=== PATIENT | female | born 1955 | race Caucasian/White ===

== ENCOUNTER → 2024-12-05 16:14 | Outpatient (REF) | payer MEDICARE, SELFPAY ==
[2024-12-05 12:34] LABS: % Basophils 0.2 % (0-2); % Eosinophils 2.4 % (0-6); % Lymphocytes 41.4 % (20.5-51.1); Absolute Eosinophils 0.1 10^3/uL (0-0.7); Absolute Lymphocytes 1.7 10^3/uL (1.2-3.4); Absolute Monocytes 0.3 10^3/uL (0.1-0.6); Hematocrit 30.5 % (37.0-47.0); Hemoglobin 10.1 g/dL (12.0-16.0); Mean Corp Hgb Conc. 33.1 g/dL (33.0-37.0); Mean Corpuscular Hgb 24.6 pg (27.0-31.0); Mean Corpuscular Volume 74.4 fL (81.0-99.0); Mean Platelet Volume 9.3 fL (7.4-10.4); Platelet Count 268 10^3/uL (130-400); Red Cell Dist. Width 16.6 % (11.5-14.5); White Blood Cell Count 4.1 10^3/uL (4.8-10.8)
== END ==
LOC: OIDL 16:14
PROVIDERS: ATTENDING PHYSICIAN Internal Medicine Hematology & Oncology
DX: D50.9 Iron deficiency anemia, unspecified (principal)
CPT/HCPCS: 85025

== ENCOUNTER → 2024-12-14 06:45 | Outpatient (REF) | payer MEDICARE, SELFPAY ==
[2024-12-14 07:38] LABS: % Eosinophils 4.2 % (0-6); % Lymphocytes 49.6 % (20.5-51.1); % Monocytes 8.6 % (1.7-9.3); % Neutrophils 36.6 % (42.2-75.2); Absolute Eosinophils 0.2 10^3/uL (0-0.7); Absolute Monocytes 0.4 10^3/uL (0.1-0.6); Absolute Neutrophils 1.5 10^3/uL (1.4-6.5); Hematocrit 33.6 % (37.0-47.0); Hemoglobin 10.6 g/dL (12.0-16.0); Mean Corp Hgb Conc. 31.5 g/dL (33.0-37.0); Mean Corpuscular Volume 79.2 fL (81.0-99.0); Mean Platelet Volume 9.3 fL (7.4-10.4); Nucleated Red Blood Cells % 0 %; Platelet Count 237 10^3/uL (130-400); Red Blood Cell Count 4.24 10^6/uL (4.20-5.40); Red Cell Dist. Width 19.2 % (11.5-14.5); White Blood Cell Count 4.1 10^3/uL (4.8-10.8)
[2024-12-14 08:17] LABS: Iron 225 ug/dl (37-170)
[2024-12-14 08:35] LABS: Percent Saturation 61 % (20-50); Total Iron Binding Capacity 363 ug/dl (265-497)
== END ==
LOC: REG 06:45
PROVIDERS: ATTENDING PHYSICIAN Internal Medicine Hematology & Oncology; FAMILY PHYSICIAN Family Medicine
DX: D50.9 Iron deficiency anemia, unspecified (principal)
CPT/HCPCS: 36415; 82728; 83540; 83550; 85025

== ENCOUNTER 2025-01-15 06:23 | Day surgery (SDC) | payer MEDICARE, SELFPAY | END 2025-01-15 14:05 | disposition home or self-care (01) | LOC: GI 06:23 | PROVIDERS: ATTENDING PHYSICIAN Internal Medicine Gastroenterology | DX: D50.0 Iron deficiency anemia secondary to blood loss (chronic) (principal); K57.50 Diverticulosis of both small and large intestine without perforation or abscess without bleeding; K55.20 Angiodysplasia of colon without hemorrhage; R13.14 Dysphagia, pharyngoesophageal phase; K31.7 Polyp of stomach and duodenum; K22.89 Other specified disease of esophagus; R12 Heartburn; D12.0 Benign neoplasm of cecum; D12.3 Benign neoplasm of transverse colon | CPT/HCPCS: 45385; 45380; 43239; 88305 ==